=== PATIENT | female | born 2000 | race American Indian/Alaskan Native ===

== ENCOUNTER 2021-09-08 11:38 | Emergency (ER) | payer OTHER ==
[~2021-09-08] VITALS: Ht 172.7 cm; Wt 77.3 kg
[2021-09-08] MEDS ORDERED: ABILIFY 10MG TA10 MG PO (12:00)
[2021-09-08 12:01] VITALS: TEMP 98
[2021-09-08] MEDS ORDERED: WELLBUTRIN XL300 M1 PO (12:01)
[2021-09-08 13:06] LABS: COLLECTION METHOD CLEAN CATCH
[2021-09-08 13:11] LABS: HEMATOCRIT 43.4 % (35.0-45.0); HEMOGLOBIN 14.4 g/dl (12.0-15.0); MEAN CELL VOLUME 87 fl (80.0-95.0); MEAN CORPUSCULAR HEMOGLOBIN 29 pg (26-32); MEAN CORPUSCULAR HGB CONC 33 g/dl (33.0-37.0); MEAN PLATELET VOLUME 12.8 fl (7.4-10.4); PLATELET COUNT 159 K/mm3 (130-400); RED BLOOD COUNT 5.02 M/mm3 (4.10-5.30); REDCELL DISTRIBUTION WIDTH-CV 13.6 % (11.5-14.5)
[2021-09-08 13:27] LABS: PH 6 (5-8); SQUAMOUS EPITHELIAL 0-2 /hpf (0-10); URINE APPEARANCE Clear (CLEAR/HAZY); URINE BACTERIA Rare /hpf (NONE SEEN); URINE BILIRUBIN Negative (NEGATIVE); URINE BLOOD 1+ (NEGATIVE); URINE COLOR Yellow (YELLOW); URINE GLUCOSE Negative (NEGATIVE); URINE KETONE 1+ (NEGATIVE); URINE LEUKOCYTE ESTERASE Negative (NEGATIVE); URINE NITRATE Negative (NEGATIVE); URINE PROTEIN(semi-quant) Negative (NEGATIVE); URINE RBC 0-2 /hpf (0-2)
[2021-09-08 13:32] LABS: BAND 13 % (0-10); NEUTROPHILS 63 % (42.0-75.2)
[2021-09-08 13:33] LABS: LYMPHOCYTE 21 % (20.0-51.0); PLATELET ESTIMATE NORMAL (NORMAL)
[2021-09-08 13:34] LABS: BILIRUBIN,TOTAL 0.6 mg/dL (0.2-1.2); C-REACTIVE PROTEIN 4.71 mg/dL (0.00-0.50); CALCIUM 8.8 mg/dL (8.4-10.2); CREATININE, serum 1.17 mg/dL (0.57-1.11); POTASSIUM 3.8 mmol/L (3.5-4.5); TOTAL PROTEIN 7.9 gm/dL (6.2-8.1)
[2021-09-08 15:00] VITALS: BP 136/84; PULSE 99
== END 2021-09-08 15:00 | disposition home or self-care (01) ==
LOC: COL.ER 11:38
PROVIDERS: Family Medicine
DX: U07.1 COVID-19 (principal); Z73.0 Burn-out
CPT/HCPCS: J2405; J7120

== ENCOUNTER 2022-04-25 23:54 | Emergency (ER) | payer OTHER ==
[~2022-04-25] VITALS: Ht 172.7 cm; Wt 68.2 kg
[~2022-04-25 23:54] MED LIST: ABILIFY 10MG TA10 MG PO; WELLBUTRIN XL300 M1 PO
[2022-04-26 00:10] VITALS: TEMP 98.8
[2022-04-26] MEDS ORDERED: EFFEXOR 75M75 MG/TAB (01:03)
[2022-04-26 01:22] LABS: BASO # 0.1 K/mm3 (0.0-0.2); BASO % 0.8 % (0.0-2.0); GRAN # 3.1 K/mm3 (1.4-6.5); GRAN % 40.8 % (42.2-75.2); HEMATOCRIT 39.5 % (37.0-47.0); HEMOGLOBIN 12.9 g/dl (12.5-16.0); LYMPH # 3.8 K/mm3 (1.2-3.4); LYMPH % 51.2 % (20.0-51.0); MEAN CELL VOLUME 87 fl (80.0-100.0); MEAN CORPUSCULAR HEMOGLOBIN 29 pg (27-31); MEAN CORPUSCULAR HGB CONC 33 g/dl (33.0-37.0); MEAN PLATELET VOLUME 11.6 fl (7.4-10.4); MONO # 0.5 K/mm3 (0.1-0.6); MONO % 7.1 % (1.7-9.3); PLATELET COUNT 268 K/mm3 (130-400); RED BLOOD COUNT 4.52 M/mm3 (4.10-5.30); REDCELL DISTRIBUTION WIDTH-CV 12.8 % (11.5-14.5)
[2022-04-26 01:42] LABS: BILIRUBIN,TOTAL 0.3 mg/dL (0.2-1.2); CALCIUM 9.6 mg/dL (8.4-10.2); CREATININE, serum 0.76 mg/dL (0.57-1.11); TOTAL PROTEIN 7.3 gm/dL (6.2-8.1)
[2022-04-26] MEDS ORDERED: PREDNISONE10 MG PO (04:36)
[2022-04-26 04:55] VITALS: BP 113/77; PULSE 71
== END 2022-04-26 04:55 | disposition home or self-care (01) ==
LOC: COL.ER 23:54
PROVIDERS: Personal Emergency Response Attendant
DX: U07.1 COVID-19 (principal); H53.9 Unspecified visual disturbance; Z73.0 Burn-out; Z28.310 Unvaccinated for COVID-19
CPT/HCPCS: Q9967

== ENCOUNTER 2022-05-20 19:15 | Emergency (ER) | payer OTHER ==
[~2022-05-20] VITALS: Ht 172.7 cm; Wt 75.0 kg
[~2022-05-20 19:15] MED LIST changes: +EFFEXOR 75M75 MG/TAB; +PREDNISONE10 MG PO
[2022-05-20 19:19] VITALS: TEMP 97.2
[2022-05-20] MEDS ORDERED: BACTRIM DS 8001 TAB PO (21:14)
[2022-05-20 21:40] VITALS: BP 116/75; PULSE 75
== END 2022-05-20 21:55 | disposition home or self-care (01) ==
LOC: COL.ER 19:15
DX: L60.0 Ingrowing nail (principal); Z88.1 Allergy status to other antibiotic agents; Z28.311 Partially vaccinated for COVID-19

== ENCOUNTER 2023-12-05 06:33 | Emergency (ER) | payer BC ==
[~2023-12-05] VITALS: Ht 172.7 cm; Wt 72.7 kg
[~2023-12-05 06:33] MED LIST changes: +BACTRIM DS 8001 TAB PO
[2023-12-05 06:41] VITALS: BP 127/82; TEMP 98
[2023-12-05] MEDS ORDERED: Ketorolac 15 MG/ML VIAL IV ONE (07:15)
[2023-12-05] MEDS ORDERED: LR 1,000 ML IV ONE (07:15)
[2023-12-05 08:02] VITALS: PULSE 78
== END 2023-12-05 08:02 | disposition home or self-care (01) ==
LOC: COL.ER 06:33
DX: G43.909 Migraine, unspecified, not intractable, without status migrainosus (principal)
CPT/HCPCS: J0780; J1885; J7120